=== PATIENT | male | born 1965 | race Caucasian/White ===

== ENCOUNTER 2021-12-29 20:05 | Emergency (ER) | payer SELFPAY ==
[~2021-12-29] VITALS: Ht 177.8 cm; Wt 77.3 kg
[2021-12-29 20:16] VITALS: TEMP 97.1
[2021-12-29 22:40] VITALS: BP 130/77; PULSE 88
[2021-12-30] MEDS ORDERED: SYNTHROID0.125 MG/T PO (13:41)
[2021-12-30] MEDS ORDERED: NORCO 325 MG-51 TAB PO ×2 (13:41→15:19)
[2021-12-30] MEDS ORDERED: ZOFRAN 4MG T4 MG/TAB PO (13:42)
[2021-12-30] MEDS ORDERED: FLOMAX 0.40.4 MG/CAP PO (13:42)
== END 2021-12-29 22:40 | disposition home or self-care (01) ==
LOC: COL.ER 20:05
DX: N20.1 Calculus of ureter (principal); Z28.310 Unvaccinated for COVID-19
CPT/HCPCS: J1885; J2270; J2550; J7030

== ENCOUNTER 2021-12-30 12:25 | Day surgery (SDC) | payer SELFPAY ==
[2021-12-30] VITALS (7 sets, daily range): BP systolic 113–135; BP diastolic 73–88; PULSE 56–67; TEMP 98–98.8
[~2021-12-30] VITALS: Ht 177.8 cm; Wt 77.4 kg
--- NOTE | 2021-12-30 13:00 | NUR ---
PATIENT ADMITED INTO ROOM 322, DIRECT ADMIT WITH LEFT SIDE KIDNEY STONE. A&O. VSS. REPORTS LEFT FLANK PAIN IS TOLERABLE AT THIS TIME. NPO. STARTED 20 GAUGE IV, ON FIRST ATTEMPT, INTO LEFT FORARM. LR INFUSING VIA GRAVITY FOR SURGERY. HEAD TO TOE ASSESSMENT COMPLETE. SON AT BEDSIDE. PLAN IS TO GO TO SURGERY AROUND 1430 TODAY. RONAK NOTIFIED OF ARRIVAL.
[2021-12-30] MEDS ORDERED: NORCO 325 MG-51 TAB PO ×2 (13:41→15:19)
[2021-12-30] MEDS ORDERED: SYNTHROID0.125 MG/T PO (13:41)
[2021-12-30] MEDS ORDERED: FLOMAX 0.40.4 MG/CAP PO (13:42)
[2021-12-30] MEDS ORDERED: ZOFRAN 4MG T4 MG/TAB PO (13:42)
--- NOTE | 2021-12-30 14:10 | NUR ---
PATIENT GOING DOWN TO OR VIA BED. CONSENT ON CHART. PRE-OP MEDS GIVEN. SON AT BEDSIDE. PATIENT NOW OFF FLOOR.
--- NOTE | 2021-12-30 15:55 | NUR ---
PATIENT BACK IN ROOM POST OP. A&O. VSS. NO COMPLAINTS. LIQUIDS AT BEDSIDE. HEAD TO TOE WNL. PATIENT WILL DISCHARGE HOME TONIGHT WHEN CRITERIA MEET. SON AT BEDSIDE. NO NEEDS AT THIS TIME.
--- NOTE | 2021-12-30 16:20 | NUR ---
PATIENT UP TO BATHROOM AND VOIDED.
--- NOTE | 2021-12-30 16:20 | NUR ---
REPORTED OFF TO VAN DE ANDA.
--- NOTE | 2021-12-30 16:45 | NUR ---
RECEIVED CHANGE OF SHIFT REPORT FROM DAY SHIFT RN.
--- NOTE | 2021-12-30 17:14 | NUR ---
PATIENT REPORTS HAS VOIDED AN ADDITIONAL TIME WITH SOME BLOODY FLECKS BUT NO PROBLEMS. DENIES DISCOMFORT AT THIS TIME. DENIES NAUSEA AFTER EATING SOLID FOODS.
--- NOTE | 2021-12-30 17:18 | NUR ---
PATIENT'S REPORTING HE IS FEELING GOOD AND READY TO GO HOME.
--- NOTE | 2021-12-30 17:54 | NUR ---
PATIENT DISMISS, DISCHARGE CRITERIA MET. FAMILY MEMBER TO TRANSPORT PATIENT HOME. PATIENT DENIED ANY C/O OR FURTHER QUESTIONS AT TIME OF DISCHARGE.
== END 2021-12-30 17:54 | disposition home or self-care (01) ==
LOC: SDCO 12:25 → SURG 12:31 → SDCO 14:30
DX: N20.1 Calculus of ureter (principal)
CPT/HCPCS: OP; C1769; C2617; J0690; J1100; J2405; J2704; J3010; J7120; Q9967